=== PATIENT | female | born 1970 | race Caucasian/White ===

== ENCOUNTER → 2017-04-27 | Day surgery (SDC) | payer BC ==
[~2017-04-27] MED LIST: AK-DILATE 2.5% OPHTH 1 DOSE AFFEYE ONE; MYDRIACIL OPHTH 1 DOSE AFFEYE ONE; TETRACAINE 0.5% OPHTH 1 DOSE AFFEYE ONE
[2017-04-27 09:21] VITALS: BP 124/87
== END ==
LOC: SURG1 06:57
PROVIDERS: ATTEND Ophthalmology
PROC: 085E3ZZ Destruction of Right Retina, Percutaneous Approach (ICD-10-PCS; principal; 2017-04-27 08:00)
DX: E11.3311 Type 2 diabetes mellitus with moderate nonproliferative diabetic retinopathy with macular edema, right eye (principal)

== ENCOUNTER 2017-06-01 07:45 | Day surgery (SDC) | payer BC ==
[2017-06-01] MEDS ORDERED: ALCAINE or OPHTHETIC 1 DOSE AFFEYE ONE (08:06)
[2017-06-01] MEDS ORDERED: MYDRIACIL OPHTH 1 DOSE AFFEYE ONE (08:08)
[2017-06-01] MEDS ORDERED: AK-DILATE 2.5% OPHTH 1 DOSE OP ONE (08:09)
[2017-06-01] MEDS ORDERED: TETRACAINE 0.5% OPHTH 1 DOSE AFFEYE ONE (09:24)
[2017-06-01 12:35] VITALS: BP 142/85
== END 2017-06-01 09:45 | disposition home or self-care (01) ==
LOC: SURG1 07:45
PROVIDERS: ATTEND Ophthalmology
PROC: 08QD3ZZ Repair Left Iris, Percutaneous Approach (ICD-10-PCS; principal; 2017-06-01 11:00)
DX: E11.319 Type 2 diabetes mellitus with unspecified diabetic retinopathy without macular edema (principal)